=== PATIENT | male | born 2000 | race Caucasian/White ===

== ENCOUNTER 2020-12-26 15:08 | Emergency (ER) | payer OTHER ==
[~2020-12-26] VITALS: Ht 185 cm; Wt 77.0 kg
[2020-12-26] MEDS ORDERED: LACTATED RINGERS 1,000 ML IV ONE ×3 (15:19→15:45)
[2020-12-26] MEDS ORDERED: ONDANSETRON 4 MG/2 ML (SDV) Z0FRAN ONE (15:19)
[2020-12-26] MEDS ORDERED: FAMOTIDINE 20MG/2ML IV (PEPCID) ONE (15:20)
[2020-12-26 15:28] LABS: BASOPHILS % (AUTO) 0 % (0-10); EOSINOPHILS % (AUTO) 0 % (0-10); HEMATOCRIT 44 % (40-54); HEMOGLOBIN 15.3 g/dL (13.3-17.7); LYMPHOCYTES # (AUTO) 1.3 10^3/uL (1.0-4.0); LYMPHOCYTES % (AUTO) 11 % (12-44); MEAN CORPUSCULAR HEMOGLOBIN 32 pg (25-34); MEAN CORPUSCULAR HGB CONC 35 g/dL (32-36); MEAN CORPUSCULAR VOLUME 92 fL (80-99); MONOCYTES # (AUTO) 0.5 10^3/uL (0.0-1.0); MONOCYTES % (AUTO) 4 % (0-12); NEUTROPHILS # (AUTO) 9.9 10^3/uL (1.8-7.8); NEUTROPHILS % (AUTO) 84 % (42-75); PLATELET COUNT 221 10^3/uL (130-400); WHITE BLOOD COUNT 11.8 10^3/uL (4.3-11.0)
[2020-12-26] MEDS ORDERED: FAMOTIDINE 20MG/2ML IV (PEPCID) IVP ONE (15:30)
[2020-12-26] MEDS ORDERED: ONDANSETRON 4 MG/2 ML (SDV) Z0FRAN IVP ONE (15:30)
[2020-12-26 15:37] LABS: CHLORIDE 109 MMOL/L (98-107); POTASSIUM 4.4 MMOL/L (3.6-5.0); SODIUM 142 MMOL/L (135-145)
[2020-12-26 15:38] LABS: CALCIUM 9.2 MG/DL (8.5-10.1)
[2020-12-26 15:39] LABS: GLUCOSE 101 MG/DL (70-105); TOTAL PROTEIN 8.3 GM/DL (6.4-8.2)
[2020-12-26 15:40] LABS: CARBON DIOXIDE 18 MMOL/L (21-32)
[2020-12-26 15:41] LABS: BILIRUBIN,TOTAL 0.9 MG/DL (0.1-1.0)
[2020-12-26 15:42] LABS: ALKALINE PHOSPHATASE 49 U/L (40-136)
[2020-12-26 15:43] LABS: CREATININE SERUM 0.98 MG/DL (0.60-1.30); GFR ESTIMATED > 60
[2020-12-26 15:44] LABS: BUN/CREATININE RATIO 15
[2020-12-26 15:46] LABS: ALANINE AMINOTRANSFERASE 19 U/L (0-55); LIPASE 16 U/L (8-78)
[2020-12-26] MEDS ORDERED: ONDA4TAB11 SL (16:44)
--- NOTE | 2020-12-26 16:44 | ED GI ---
General Chief Complaint: Abdominal/GI Problems Stated Complaint: VOMITING Nursing Triage Note: PT AMB TO ROOM 6 PT CO OF VOMITING SINCE ABOUT 1200PM TODAY, PT STATES DRANK 2 DMITRY BOMBS,3 [place] ICE TEAS, AND 2 BEERS. SLEPT AND WHEN AWOKE HAS VOMITED NUMEROUS TIMES. STATES HAS BAD HANGOVER. STATES HAS NOT URINATED SINCE LAST PM Sepsis Screen: No Definite Risk Source of Information: Patient Exam Limitations: No Limitations Allergies and Home Medications Allergies Coded Allergies: No Known Drug Allergies (Unverified , 12/26/20) Past Aosqfch-Jxpsqr-Cmtkwa Hx Patient Social History Alcohol Use: Occasionally Uses Number of Drinks Today: 0 Smoking Status: Never a Smoker Recent Infectious Disease Expo: No Recent Hopitalizations: No Past Medical History Surgeries: No Respiratory: No Cardiac: No Neurological: No Genitourinary: No Gastrointestinal: No Musculoskeletal: No Endocrine: No HEENT: No Cancer: No Psychosocial: No Integumentary: No Physical Exam Vital Signs Vital Signs - First Documented 12/26/20 15:10 Temp 35.3 Pulse 90 Resp 20 B/P (MAP) 139/74 (95) Pulse Ox 100 Capillary Refill : Less Than 3 Seconds Height/Weight/BMI Height: '" Weight: lbs. oz. kg; 22.00 BMI Method: Progress/Results/Core Measures Results/Orders Lab Results Laboratory Tests Test 12/26/20 15:15 Range/Units White Blood Count 11.8 H 4.3-11.0 10^3/uL Red Blood Count 4.75 4.30-5.52 10^6/uL Hemoglobin 15.3 13.3-17.7 g/dL Hematocrit 44 40-54 % Mean Corpuscular Volume 92 80-99 fL Mean Corpuscular Hemoglobin 32 25-34 pg Mean Corpuscular Hemoglobin Concent 35 32-36 g/dL Red Cell Distribution Width 12.5 10.0-14.5 % Platelet Count 221 130-400 10^3/uL Mean Platelet Volume 10.0 9.0-12.2 fL Immature Granulocyte % (Auto) 0 % Neutrophils (%) (Auto) 84 H 42-75 % Lymphocytes (%) (Auto) 11 L 12-44 % Monocytes (%) (Auto) 4 0-12 % Eosinophils (%) (Auto) 0 0-10 % Basophils (%) (Auto) 0 0-10 % Neutrophils # (Auto) 9.9 H 1.8-7.8 10^3/uL Lymphocytes # (Auto) 1.3 1.0-4.0 10^3/uL Monocytes # (Auto) 0.5 0.0-1.0 10^3/uL Eosinophils # (Auto) 0.0 0.0-0.3 10^3/uL Basophils # (Auto) 0.0 0.0-0.1 10^3/uL Immature Granulocyte # (Auto) 0.1 0.0-0.1 10^3/uL Sodium Level 142 135-145 MMOL/L Potassium Level 4.4 3.6-5.0 MMOL/L Chloride Level 109 H 98-107 MMOL/L Carbon Dioxide Level 18 L 21-32 MMOL/L Anion Gap 15 H 5-14 MMOL/L Blood Urea Nitrogen 15 7-18 MG/DL Creatinine 0.98 0.60-1.30 MG/DL Estimat Glomerular Filtration Rate > 60 BUN/Creatinine Ratio 15 Glucose Level 101 70-105 MG/DL Calcium Level 9.2 8.5-10.1 MG/DL Corrected Calcium 8.5-10.1 MG/DL Magnesium Level 2.0 1.6-2.4 MG/DL Total Bilirubin 0.9 0.1-1.0 MG/DL Aspartate Amino Transf (AST/SGOT) 23 5-34 U/L Alanine Aminotransferase (ALT/SGPT) 19 0-55 U/L Alkaline Phosphatase 49 40-136 U/L Total Protein 8.3 H 6.4-8.2 GM/DL Albumin 5.0 H 3.2-4.5 GM/DL Lipase 16 8-78 U/L My Orders Orders - CATALINA SOLORZANO MD Cbc With Automated Diff (12/26/20 15:21) Comprehensive Metabolic Panel (12/26/20 15:21) Lipase (12/26/20 15:21) Magnesium (12/26/20 15:21) Ed Iv/Invasive Line Start (12/26/20 15:21) Lactated Ringers (Lr 1000 Ml Iv Solution (12/26/20 15:30) Ondansetron Injection (Zofran Injectio (12/26/20 15:30) Famotidine Injection (Pepcid Injection) (12/26/20 15:30) Lactated Ringers (Lr 1000 Ml Iv Solution (12/26/20 15:19) Ondansetron Injection (Zofran Injectio (12/26/20 15:19) Famotidine Injection (Pepcid Injection) (12/26/20 15:20) Lactated Ringers (Lr 1000 Ml Iv Solution (12/26/20 15:45) Medications Given in ED Current Medications Medications Dose Ordered Sig/Gene Route Start Time Stop Time Status Last Admin Dose Admin Famotidine 20 mg ONCE ONCE IVP 12/26/20 15:30 12/26/20 15:31 DC 12/26/20 15:28 20 MG Lactated Ringer's 1,000 ml @ 0 mls/hr Q0M ONCE IV 12/26/20 15:30 12/26/20 15:31 DC 12/26/20 15:28 1,000 MLS/HR Ondansetron HCl 8 mg ONCE ONCE IVP 12/26/20 15:30 12/26/20 15:31 DC 12/26/20 15:29 8 MG Vital Signs/I&O 12/26/20 15:10 Temp 35.3 Pulse 90 Resp 20 B/P (MAP) 139/74 (95) Pulse Ox 100 Blood Pressure Mean: 95 Departure Impression Primary Impression: Nausea and vomiting Qualified Codes: R11.2 - Nausea with vomiting, unspecified Additional Impression: Dehydration Disposition: 01 HOME, SELF-CARE Condition: Improved Departure-Patient Inst. Decision time for Depature: 16:42 Referrals: NO,LOCAL PHYSICIAN (PCP/Family) Primary Care Physician Patient Instructions: Dehydration, Adult (DC) Add. Discharge Instructions: Start with a clear liquid diet and drink plenty of clear liquids. Gradually advance your diet with small quantities of bland food as tolerated. Advance your diet slowly. Fill the prescription for Zofran (ondansetron) if needed to control further nausea and vomiting. Call with questions or concerns, and return to the ER if you have worsening condition. All discharge instructions reviewed with patient and/or family. Voiced understanding. Scripts Ondansetron (Ondansetron Odt) 4 Mg Tab.rapdis 4 MG SL Q4H PRN for NAUSEA/VOMITING, #10 TAB Prov: CATALINA SOLORZANO MD 12/26/20 CATALINA SOLORZANO MD Dec 26, 2020 16:44
[2020-12-26 17:35] VITALS: BP 136/70
== END 2020-12-26 17:35 | disposition home or self-care (01) ==
LOC: ER 15:11
DX: R11.2 Nausea with vomiting, unspecified (principal); E86.0 Dehydration
CPT/HCPCS: 36415; 80053; 83690; 83735; 85025